=== PATIENT | female | born 1935 | race Caucasian/White ===

== ENCOUNTER → 2018-01-17 | Outpatient (REF) | payer MEDICARE ==
[2018-01-17 19:01] LABS: FREE T4 0.83 NG/DL (0.76-1.46)
== END ==
LOC: M LAB REF 17:54
DX: E03.9 Hypothyroidism, unspecified (principal)
CPT/HCPCS: 84443

== ENCOUNTER → 2018-04-12 | Outpatient (CLI) | payer MEDICARE | LOC: M WUC 12:37 | DX: J20.9 Acute bronchitis, unspecified (principal); R06.02 Shortness of breath ==

== ENCOUNTER 2018-04-15 11:37 | Inpatient (IN) | payer MEDICARE ==
[2018-04-15 12:58] LABS: BASO # 0.1 10^3/uL (0.0-0.2); BASO % 0.6 % (0.0-1.0); EOS # 0.2 10^3/uL (0.0-0.50); EOS % 2.2 % (0.0-3.0); HEMATOCRIT 38.4 % (36.0-47.0); HEMOGLOBIN 13.3 g/dl (12.0-15.5); IMMATURE GRANULOCYTE % 0.3 % (0-3.0); LYMPH # 1.2 10^3/uL (1.5-4.5); LYMPH % 13.9 % (24.0-44.0); MEAN CORPUSCULAR HEMOGLOBIN 33.8 pg (27.0-33.0); MEAN CORPUSCULAR HGB CONC 34.6 g/dl (32.0-36.5); MEAN CORPUSCULAR VOLUME 97.5 fl (80.0-96.0); MONO # 0.4 10^3/uL (0.0-0.8); MONO % 4.1 % (0.0-5.0); NEUTROPHILS # 6.9 10^3/uL (1.8-7.7); NEUTROPHILS % 78.9 % (36.0-66.0); PLATELET COUNT, AUTOMATED 268 10^3/uL (150-450); RED BLOOD COUNT 3.94 10^6/uL (4.00-5.40); RED CELL DISTRIBUTION WIDTH 12.3 % (11.5-14.5); WHITE BLOOD COUNT 8.7 10^3/uL (4.0-10.0)
[2018-04-15 13:23] LABS: ALBUMIN 3.5 GM/DL (3.2-5.2); ALBUMIN/GLOBULIN RATIO 0.92 (1.00-1.93); ALKALINE PHOSPHATASE 80 U/L (45-117); ANION GAP 8 MEQ/L (8-16); AST/SGOT 14 U/L (7-37); BILIRUBIN,DIRECT 0.2 MG/DL (0.0-0.2); BILIRUBIN,TOTAL 0.6 MG/DL (0.2-1.0); BLOOD UREA NITROGEN 11 MG/DL (7-18); CALCIUM LEVEL 8.8 MG/DL (8.8-10.2); CARBON DIOXIDE LEVEL 22 MEQ/L (21-32); CHLORIDE LEVEL 107 MEQ/L (98-107); CPK CREATINE PHOSPHOKINASE 74 U/L (26-192); CREATININE FOR GFR 1.47 MG/DL (0.55-1.30); GLOMERULAR FILTRATION RATE 36.3 (>32); GLUCOSE, FASTING 113 MG/DL (70-100); POTASSIUM SERUM 3.5 MEQ/L (3.5-5.1); SODIUM LEVEL 137 MEQ/L (136-145); TOTAL PROTEIN 7.3 GM/DL (6.4-8.2); TROPONIN I < 0.02 NG/ML (< 0.10)
[2018-04-15 13:29] LABS: ALT/SGPT 23 U/L (12-78); CK-MB VALUE MASS < 1.0 NG/ML (<3.6); MB/CK RELATIVE INDEX 1.35 (< OR =4); NT-PRO BNP 156 PG/ML (<450)
[2018-04-15 17:09] LABS: ABG BASE EXCESS -3.2 (-2.0-2.0); ABG HCO3 19.5 MEQ/L (22.0-26.0); ABG O2 SATURATION 97.1 % (95.0-99.0); ABG PARTIAL PRESSURE CO2 28.7 mmHg (35.0-45.0); ABG PARTIAL PRESSURE O2 86.7 mmHg (75.0-100.0); ABG STANDARD HCO3 21.8 MEQ/L (22.0-26.0); ABG TOTAL CO2 20.4 MEQ/L (23.0-31.0)
[2018-04-15] MEDS ORDERED: BISACODYL 10 MG SUPP PR (18:30)
[2018-04-15] MEDS ORDERED: ALBUTEROL 90 MCG/ACT 8GM HFA INHALER INH (18:30)
[2018-04-15] MEDS: LevoFLOXacin IV 250 MG in APPROPRIATE DILUENT 1 EA IV (19:32)
[2018-04-15] MEDS: predniSONE 10 MG TAB PO ×2 (19:32→19:35)
[2018-04-15] MEDS: guaiFENesin ER 600 MG TAB PO (20:15)
[2018-04-15] MEDS: ALPRAZolam 0.25 MG TAB PO (20:15)
[2018-04-15] MEDS: IPRATROPIUM 0.5MG/ALBUTEROL 2.5MG INH SOL UD 3ML (DUONEB)(J7620) NEB (21:12)
[2018-04-16] MEDS: IPRATROPIUM 0.5MG/ALBUTEROL 2.5MG INH SOL UD 3ML (DUONEB)(J7620) NEB ×4 (01:35→21:22)
[2018-04-16 06:01] LABS: BASO % 0.1 % (0.0-1.0); HEMATOCRIT 37.1 % (36.0-47.0); HEMOGLOBIN 12.8 g/dl (12.0-15.5); IMMATURE GRANULOCYTE % 0.5 % (0-3.0); LYMPH # 1.1 10^3/uL (1.5-4.5); LYMPH % 11.4 % (24.0-44.0); MEAN CORPUSCULAR HEMOGLOBIN 33.4 pg (27.0-33.0); MEAN CORPUSCULAR HGB CONC 34.5 g/dl (32.0-36.5); MEAN CORPUSCULAR VOLUME 96.9 fl (80.0-96.0); MONO # 0.2 10^3/uL (0.0-0.8); NEUTROPHILS # 8.5 10^3/uL (1.8-7.7); PLATELET COUNT, AUTOMATED 320 10^3/uL (150-450); RED BLOOD COUNT 3.83 10^6/uL (4.00-5.40); RED CELL DISTRIBUTION WIDTH 12.2 % (11.5-14.5); WHITE BLOOD COUNT 9.8 10^3/uL (4.0-10.0)
[2018-04-16 06:25] LABS: ESTIMATED AVERAGE GLUCOSE 114 MG/DL (60-110); HEMOGLOBIN A1c 5.6 %
[2018-04-16 06:28] LABS: ANION GAP 9 MEQ/L (8-16); BLOOD UREA NITROGEN 17 MG/DL (7-18); CALCIUM LEVEL 9.1 MG/DL (8.8-10.2); CARBON DIOXIDE LEVEL 23 MEQ/L (21-32); CHLORIDE LEVEL 102 MEQ/L (98-107); GLOMERULAR FILTRATION RATE 38.4 (>32); GLUCOSE, FASTING 150 MG/DL (70-100); MAGNESIUM LEVEL 2.2 MG/DL (1.8-2.4); POTASSIUM SERUM 4.1 MEQ/L (3.5-5.1); SODIUM LEVEL 134 MEQ/L (136-145)
[2018-04-16] MEDS: CYANOCOBALAMIN 500 MCG TAB PO (08:28)
[2018-04-16] MEDS: SPIRONOLACTONE 25 MG TAB PO (08:29)
[2018-04-16] MEDS: guaiFENesin ER 600 MG TAB PO ×2 (08:29→21:29)
[2018-04-16] MEDS: ENOXAPARIN 30 MG/0.3 ML SYR (J1650) SC (08:29)
[2018-04-16] MEDS: LOSARTAN 50 MG TAB PO (08:29)
[2018-04-16 15:10] LABS: APPEARANCE, URINE CLEAR (CLEAR); BACTERIA, URINE AUTO NEGATIVE (NEGATIVE); BILIRUBIN, URINE AUTO NEGATIVE (NEGATIVE); BLOOD, URINE BLOOD NEGATIVE (NEGATIVE); COLOR, URINE STRAW (YELLOW); GLUCOSE, URINE (UA) AUTO NEGATIVE (NEGATIVE); KETONE, URINE AUTO NEGATIVE (NEGATIVE); LEUKOCYTE ESTERASE, URINE AUTO NEGATIVE (NEGATIVE); NITRITE, URINE AUTO NEGATIVE (NEGATIVE); PROTEIN, URINE AUTO NEGATIVE (NEGATIVE); RBC, URINE AUTO 1 /HPF (0-3); SPECIFIC GRAVITY URINE AUTO 1.005 (1.002-1.035); SQUAMOUS EPITHELIAL CELL UR AU 0 /HPF (0-6); UROBILINOGEN, URINE AUTO 0.2 mg/dL (0.0-2.0); WBC, URINE AUTO 0 /HPF (0-3)
[2018-04-16] MEDS: predniSONE 20 MG TAB PO (18:15)
[2018-04-16] MEDS: LevoFLOXacin IV 250 MG in APPROPRIATE DILUENT 1 EA IV (18:16)
[2018-04-16] MEDS: ALPRAZolam 0.25 MG TAB PO (21:29)
[2018-04-16] MEDS: ACETAMINOPHEN TAB 650MG DOSE (2X325MG) PO (21:30)
[2018-04-17] MEDS: IPRATROPIUM 0.5MG/ALBUTEROL 2.5MG INH SOL UD 3ML (DUONEB)(J7620) NEB (08:47)
[2018-04-17] MEDS: SPIRONOLACTONE 25 MG TAB PO (09:52)
[2018-04-17] MEDS: CYANOCOBALAMIN 500 MCG TAB PO (09:53)
[2018-04-17] MEDS: LOSARTAN 50 MG TAB PO (09:54)
[2018-04-17] MEDS: ENOXAPARIN 30 MG/0.3 ML SYR (J1650) SC (09:55)
== END 2018-04-17 11:50 | disposition home or self-care (01) | DRG 195 ==
LOC: M ED 11:37 → M ED INP 19:18 → M MSPAV 19:59
DX: J18.9 Pneumonia, unspecified organism (principal); I12.9 Hypertensive chronic kidney disease with stage 1 through stage 4 chronic kidney disease, or unspecified chronic kidney disease; F32.9 Major depressive disorder, single episode, unspecified; K21.9 Gastro-esophageal reflux disease without esophagitis; I70.1 Atherosclerosis of renal artery; N18.3 Chronic kidney disease, stage 3 (moderate); Z79.899 Other long term (current) drug therapy; Z88.8 Allergy status to other drugs, medicaments and biological substances

== ENCOUNTER 2019-02-10 09:26 | Emergency (ER) | payer MEDICARE ==
[~2019-02-10] VITALS: Ht 162.6 cm; Wt 78.6 kg
[~2019-02-10 09:26] MED LIST: ACET500C OR; ALPR0.25 PO; ALPR1TAB6 PO; AMBI5TAB OR; AMLO10TA OR; AMLO10TA PO; Apresoline PO; COLA100C2 OR; DOXY-350 PO; HYDR25TA6 OR; ISOS30BRAN OR; LEVO250T12 PO; LOSA100T8 PO; MELA1CAP PO; MUCI600T31 PO; MULTCAP PO; PEG1POW PO; PROT1TAB2 PO; SENN15TA2 OR; SERT50TA2 OR; SPIR-10 PO; VENTAER INH; VICO5TAB OR; VITA10002 PO; ZOLO50TA OR; dulcolax PR
[2019-02-10] MEDS ORDERED: IRBE300T10 PO (09:39)
[2019-02-10 10:24] LABS: BASO % 0.6 % (0.0-1.0); EOS # 0.2 10^3/uL (0.0-0.50); EOS % 3.1 % (0.0-3.0); HEMATOCRIT 42.5 % (36.0-47.0); HEMOGLOBIN 14.3 g/dl (12.0-15.5); LYMPH # 1.9 10^3/uL (1.5-4.5); LYMPH % 26.8 % (24.0-44.0); MEAN CORPUSCULAR HGB CONC 33.6 g/dl (32.0-36.5); MONO # 0.6 10^3/uL (0.0-0.8); MONO % 7.8 % (0.0-5.0); NEUTROPHILS # 4.4 10^3/uL (1.8-7.7); NEUTROPHILS % 61.3 % (36.0-66.0); PLATELET COUNT, AUTOMATED 266 10^3/uL (150-450); RED BLOOD COUNT 4.21 10^6/uL (4.00-5.40); WHITE BLOOD COUNT 7.2 10^3/uL (4.0-10.0)
[2019-02-10 10:30] LABS: APPEARANCE, URINE CLEAR (CLEAR); BACTERIA, URINE AUTO NEGATIVE (NEGATIVE); BILIRUBIN, URINE AUTO NEGATIVE (NEGATIVE); BLOOD, URINE BLOOD NEGATIVE (NEGATIVE); COLOR, URINE YELLOW (YELLOW); GLUCOSE, URINE (UA) AUTO NEGATIVE (NEGATIVE); KETONE, URINE AUTO NEGATIVE (NEGATIVE); LEUKOCYTE ESTERASE, URINE AUTO NEGATIVE (NEGATIVE); NITRITE, URINE AUTO NEGATIVE (NEGATIVE); PROTEIN, URINE AUTO NEGATIVE (NEGATIVE); RBC, URINE AUTO 2 /HPF (0-3); SPECIFIC GRAVITY URINE AUTO 1.005 (1.002-1.035); SQUAMOUS EPITHELIAL CELL UR AU 0 /HPF (0-6); UROBILINOGEN, URINE AUTO 0.2 mg/dL (0.0-2.0); WBC, URINE AUTO 1 /HPF (0-3)
[2019-02-10] MEDS ORDERED: CYCLOBENZAPRINE 5MG TABLET PO ONE (10:30)
[2019-02-10 10:51] LABS: CALCIUM LEVEL 8.9 MG/DL (8.8-10.2); CREATININE FOR GFR 1.58 MG/DL (0.55-1.30); GLOMERULAR FILTRATION RATE 33.3 (>32); MAGNESIUM LEVEL 2.4 MG/DL (1.8-2.4); POTASSIUM SERUM 4.4 MEQ/L (3.5-5.1)
[2019-02-10] MEDS ORDERED: ISOVUE-370 76% 100ML VIAL (Q9967) As Ordered ONE (11:03)
--- NOTE | 2019-02-10 11:40 | REP ---
CT Lumbar Spine without contrast HISTORY: Back pain COMPARISON: None A diffuse disc bulge is present at the L1-2 level. There is minimal compression of the thecal sac. The L1 nerves exit the neural foramina without compression. A diffuse disc bulge is present at the L2-3 level. There is minimal compression of the thecal sac. There is hypertrophy of the posterior articulating facets. The L2 nerves exit the neural foramina without compression. A diffuse disc bulge is present at the L3-4 level. There is minimal compression of the thecal sac. There is hypertrophy of the posterior articulating facets. The L3 nerves exit the neural foramina without compression. A diffuse disc bulge is present at the L4-5 level. There is minimal compression of the thecal sac. There is hypertrophy of the posterior articulating facets. The L4 nerves exit the neural foramina without compression. A diffuse disc bulge is present at the L5-L1 level. There is minimal compression of the thecal sac. There is hypertrophy of the posterior articulating facets. There is compression of the L5 nerves in the neural foramina. The lumbar intervertebral discs are decreased in height. Vacuum phenomenon is present at the L1-2 and L5-L1 levels. These findings are consistent with disc degeneration. A 2.2 cm cyst is present in the left kidney. IMPRESSION: Diffuse disc bulges at the L1-2 through L5-L1 levels with minimal thecal sac compression. There is compression of the L5 nerves in the neural foramina. Electronically Signed by Curt Philippe MD 02/10/2019 11:32 A
[2019-02-10] MEDS ORDERED: NS 500 ML IV ONE (11:45)
--- NOTE | 2019-02-10 12:11 | REP ---
CT ANGIOGRAM ABDOMEN AND PELVIS: TECHNIQUE: Axial contrast enhanced images from the lung bases to the pubic symphysis using 100 mL Isovue 370 intravenous contrast material with multiplanar reformations. Visualized lung bases demonstrate no infiltrate. The liver, spleen and pancreas appear normal. There is bilateral adrenal gland thickening. No abnormality is seen in the right kidney. There is significant left renal atrophy with multiple cysts. The largest cyst measures 2.3 cm in diameter. There is no abdominal aortic aneurysm. There is mild scattered atherosclerotic calcification. Bilateral renal artery stents are present. Mesenteric arteries are patent. No adenopathy is seen. There is no free air or free fluid. No bowel wall thickening is seen. There is extensive sigmoid diverticulosis extending up the left colon. I do not see evidence of acute diverticulitis. There is no evidence of appendicitis. No pelvic mass is seen. Urinary bladder is mildly distended and grossly unremarkable. Lipoma is partially visualized in the proximal right thigh anteriorly with the visualized portion having a maximum diameter 7.9 cm. The patient has had a cholecystectomy. Common bile duct measures 10 mm in maximum diameter with no definite internal densities. IMPRESSION: No acute abnormalities detected. No evidence of abdominal aortic aneurysm. No free air or free fluid and no evidence of bowel inflammation. There is left colonic and sigmoid diverticulosis without evidence of acute diverticulitis. Lipoma is seen in the proximal right thigh. The patient has had a prior cholecystectomy. There is expected prominence of the common bile duct at 10 mm in diameter. There is significant left renal atrophy with multiple cysts. Electronically Signed by Rito Morley MD 02/10/2019 07:28 P
[2019-02-10] MEDS ORDERED: CYCL5TAB PO (12:12)
[2019-02-10 12:18] VITALS: BP 133/68
--- NOTE | 2019-02-13 12:43 | ED PDOC ---
Post-Departure Follow-Up dr sewell faxed formal report of cta angio abd/p for fu Byron Dee MD Feb 13, 2019 12:43
--- NOTE | 2019-02-13 12:50 | ED PDOC ---
Post-Departure Follow-Up dr sewell faxed formal report of ct ls spine for fu Byron Dee MD Feb 13, 2019 12:50
== END 2019-02-10 12:49 | disposition home or self-care (01) ==
LOC: M ED 09:26
DX: M51.16 Intervertebral disc disorders with radiculopathy, lumbar region (principal); I12.9 Hypertensive chronic kidney disease with stage 1 through stage 4 chronic kidney disease, or unspecified chronic kidney disease; N18.9 Chronic kidney disease, unspecified; F41.9 Anxiety disorder, unspecified; Z88.8 Allergy status to other drugs, medicaments and biological substances; Z79.899 Other long term (current) drug therapy
CPT/HCPCS: 36415; 72131; 74174; 80048; 81001; 83735; 85025; 99284; Q9967

== ENCOUNTER → 2019-02-24 | Outpatient (CLI) | payer MEDICARE ==
[~2019-02-24] MED LIST changes: +CYCL5TAB PO; +IRBE300T10 PO
== END ==
LOC: M PLARAD 14:28
PROVIDERS: ATTEND Emergency Medicine
DX: M54.16 Radiculopathy, lumbar region (principal)

== ENCOUNTER → 2019-04-26 | Outpatient (CLI) | payer MEDICARE ==
[~2019-04-26] MED LIST changes: +CYAN100049 PO; -VITA10002 PO
--- NOTE | 2019-05-02 13:27 | DEXA ---
AP SPINE L1 - L4 1.141 -0.4 1.4 LT FEMUR TOTAL 0.953 -0.4 1.7 LT NECK 0.845 -1.4 0.9 RT FEMUR TOTAL 0.912 -0.8 1.4 RT NECK 0.806 -1.7 0.6 TOTAL BODY TOTAL OTHER COMMENTS: Normal bone densitometry of the spine. There is low bone density of the hips. The density of the spine has increased 10.9% since the initial exam on 11/23/2006. The spine density has increased 8.6% since the most recent exam on 01/19/2012. The density of the left neck has decreased 5.7% since the initial exam on 11/23/2006. The density of the left neck has decreased 6.2% since the most recent exam on 01/19/2012. FOLLOW-UP: Recommendation for the next bone density exam: 2 years. FARA
== END ==
LOC: M WHC 13:33
PROVIDERS: ATTEND Nurse Practitioner Family
DX: Z13.820 Encounter for screening for osteoporosis (principal); M81.0 Age-related osteoporosis without current pathological fracture

== ENCOUNTER → 2020-05-17 | Outpatient (REF) | payer MEDICARE ==
[~2020-05-17] MED LIST changes: -IRBE300T10 PO; +IRBE300T7 PO
[2020-05-17 18:25] LABS: BASO % 0.6 % (0.0-1.0); EOS # 0.2 10^3/uL (0.0-0.5); EOS % 2.7 % (0.0-3.0); HEMATOCRIT 38.7 % (36.0-47.0); HEMOGLOBIN 13.9 g/dl (12.0-15.5); LYMPH # 1.5 10^3/uL (1.5-5.0); LYMPH % 24.4 % (24.0-44.0); MEAN CORPUSCULAR HEMOGLOBIN 38.4 pg (27.0-33.0); MEAN CORPUSCULAR HGB CONC 35.9 g/dl (32.0-36.5); MEAN CORPUSCULAR VOLUME 106.9 fl (80.0-96.0); MONO # 0.4 10^3/uL (0.0-0.8); MONO % 6.9 % (0.0-5.0); NEUTROPHILS % 65.2 % (36.0-66.0); PLATELET COUNT, AUTOMATED 218 10^3/uL (150-450); RED BLOOD COUNT 3.62 10^6/uL (4.00-5.40); WHITE BLOOD COUNT 6.2 10^3/uL (4.0-10.0)
[2020-05-17 18:26] LABS: ALBUMIN 3.8 GM/DL (3.2-5.2); BILIRUBIN,TOTAL 0.6 MG/DL (0.2-1.0); CALCIUM LEVEL 8.8 MG/DL (8.8-10.2); CHOLESTEROL RISK RATIO 4.447 (<5); CREATININE FOR GFR 1.53 MG/DL (0.55-1.30); GLOMERULAR FILTRATION RATE 34.4 (>32); POTASSIUM SERUM 4.6 MEQ/L (3.5-5.1); TOTAL PROTEIN 6.9 GM/DL (6.4-8.2)
== END ==
LOC: M LAB REF 16:30
PROVIDERS: ATTEND Nurse Practitioner Family
DX: Z00.01 Encounter for general adult medical examination with abnormal findings (principal); Z13.9 Encounter for screening, unspecified; N18.1 Chronic kidney disease, stage 1; F06.4 Anxiety disorder due to known physiological condition

== ENCOUNTER → 2020-11-11 | Outpatient (REF) | payer MEDICARE ==
[~2020-11-11] MED LIST changes: -PEG1POW PO; +POLY17PO18 PO
[2020-11-11 16:46] LABS: BASO % 0.4 % (0.0-1.0); EOS # 0.3 10^3/uL (0.0-0.5); EOS % 4.1 % (0.0-3.0); HEMATOCRIT 40.6 % (36.0-47.0); HEMOGLOBIN 13.8 g/dl (12.0-15.5); LYMPH # 2.2 10^3/uL (1.5-5.0); LYMPH % 29.8 % (24.0-44.0); MEAN CORPUSCULAR HEMOGLOBIN 34.8 pg (27.0-33.0); MEAN CORPUSCULAR VOLUME 102.3 fl (80.0-96.0); MONO # 0.6 10^3/uL (0.0-0.8); MONO % 8.6 % (2.0-8.0); NEUTROPHILS # 4.2 10^3/uL (1.5-8.5); PLATELET COUNT, AUTOMATED 212 10^3/uL (150-450); RED BLOOD COUNT 3.97 10^6/uL (4.00-5.40); WHITE BLOOD COUNT 7.3 10^3/uL (4.0-10.0)
[2020-11-11 17:26] LABS: ALBUMIN 3.6 GM/DL (3.2-5.2); BILIRUBIN,TOTAL 0.6 MG/DL (0.2-1.0); CALCIUM LEVEL 9.4 MG/DL (8.8-10.2); CHOLESTEROL RISK RATIO 5.062 (<5); CREATININE FOR GFR 1.55 MG/DL (0.55-1.30); GLOMERULAR FILTRATION RATE 33.9 (>32); POTASSIUM SERUM 4.5 MEQ/L (3.5-5.1); TOTAL PROTEIN 6.6 GM/DL (6.4-8.2)
[2020-11-11 17:27] LABS: TOTAL 25(OH) VITAMIN D 50.4 NG/ML (30.0-100.0)
== END ==
LOC: M LAB REF 16:22
PROVIDERS: ATTEND Nurse Practitioner Family
DX: I10 Essential (primary) hypertension (principal); E66.3 Overweight

== ENCOUNTER 2020-12-05 18:27 | Emergency (ER) | payer MEDICARE ==
[~2020-12-05] VITALS: Ht 162.6 cm; Wt 79.5 kg
[2020-12-05] MEDS ORDERED: TIZA2TA (18:45)
[2020-12-05] MEDS ORDERED: VITA200010 PO (18:45)
[2020-12-05 19:44] LABS: BASO % 0.5 % (0.0-1.0); EOS # 0.1 10^3/uL (0.0-0.5); EOS % 1.2 % (0.0-3.0); HEMATOCRIT 42.6 % (36.0-47.0); HEMOGLOBIN 14.3 g/dl (12.0-15.5); LYMPH # 1.9 10^3/uL (1.5-5.0); LYMPH % 22.6 % (24.0-44.0); MEAN CORPUSCULAR HGB CONC 33.6 g/dl (32.0-36.5); MEAN CORPUSCULAR VOLUME 101.2 fl (80.0-96.0); MONO # 0.7 10^3/uL (0.0-0.8); MONO % 8.3 % (2.0-8.0); NEUTROPHILS # 5.7 10^3/uL (1.5-8.5); PLATELET COUNT, AUTOMATED 254 10^3/uL (150-450); RED BLOOD COUNT 4.21 10^6/uL (4.00-5.40); WHITE BLOOD COUNT 8.5 10^3/uL (4.0-10.0)
--- NOTE | 2020-12-05 19:45 | REP ---
INDICATION: dizziness. COMPARISON: PA and lateral chest dated 04/15/2018. TECHNIQUE: Upright PA and lateral chest. FINDINGS: The lung castro are clear. Cardiac size is normal. The [place], mediastinum and skeletal structures are unremarkable. IMPRESSION: Essentially negative PA and lateral chest There is no interval change. <Electronically signed by Rito Okeefe > 12/05/20 1946
[2020-12-05 20:12] LABS: ALBUMIN 3.9 GM/DL (3.2-5.2); ALT/SGPT 24 U/L (12-78); BILIRUBIN,DIRECT 0.2 MG/DL (0.0-0.2); BILIRUBIN,TOTAL 0.6 MG/DL (0.2-1.0); BLOOD UREA NITROGEN 23 MG/DL (7-18); CALCIUM LEVEL 9.7 MG/DL (8.8-10.2); CARBON DIOXIDE LEVEL 24 MEQ/L (21-32); CHLORIDE LEVEL 109 MEQ/L (98-107); CK-MB VALUE MASS 1.3 NG/ML (<3.6); CPK CREATINE PHOSPHOKINASE 58 U/L (26-192); CREATININE FOR GFR 1.69 MG/DL (0.55-1.30); GLOMERULAR FILTRATION RATE 30.7 (>32); GLUCOSE, FASTING 103 MG/DL (70-100); LIPASE 71 U/L (73-393); MB/CK RELATIVE INDEX 2.24 (< OR =4); POTASSIUM SERUM 4.4 MEQ/L (3.5-5.1); SODIUM LEVEL 141 MEQ/L (136-145); TOTAL PROTEIN 7.1 GM/DL (6.4-8.2); TROPONIN I < 0.02 NG/ML (< 0.10)
[2020-12-05] MEDS: GASTROGRAFIN SOLUTION 30ML PO SCH ×2 (21:06→21:38)
--- NOTE | 2020-12-05 23:22 | REPVR ---
PROCEDURE INFORMATION: Exam: CT Abdomen and Pelvis without Contrast Exam date and time: 12/05/20 (10:20pm) Age: 85 years old Clinical indication: Left-sided abdominal pain TECHNIQUE: Imaging protocol: Computed tomography of the abdomen and pelvis without contrast. Radiation optimization: All CT scans at this facility use at least one of these dose optimization techniques: automated exposure control; mA and/or kV adjustment per patient size (includes targeted exams where dose is matched to clinical indication); or iterative reconstruction. Other contrast: Oral, gastrographin, 600 ml COMPARISON: CTA ABDOMEN PELVIS of 02/10/19 FINDINGS: Liver: Normal. No solid mass. Gallbladder and bile ducts: S/P cholecystectomy. Mildly prominent proximal CBD. Pancreas: Normal. No ductal dilatation. Spleen: Normal. No splenomegaly. Adrenal glands: Normal. No mass. Kidneys and ureters: No hydronephrosis. Moderate left renal atrophy again seen. Cyst (2.2 cm size) anteriorly at the left upper renal pole (stable). Stomach and bowel: No bowel obstruction. Colonic diverticulosis changes, most extensively seen in the distal left colon and sigmoid (similar appearance in January 2019). No acute colonic inflammation. Appendix: A short, normal appendix is likely be visualized. Intraperitoneal space: Unremarkable. No free air. No significant fluid collection. Vasculature: Extensive atherosclerotic calcifications of the abdominal aorta and iliac arteries. Bilateral renal artery stents again seen. No abdominal aortic aneurysm. Lymph nodes: Unremarkable. No enlarged lymph nodes. Urinary bladder: Unremarkable as visualized. Reproductive: Unremarkable as visualized. The uterus tilts to the right of midline (unchanged). Bones/joints: No acute fracture. Multilevel degenerative thoracolumbar spine changes. Soft tissues: Large lipoma again seen anteriorly in the upper right thigh (unchanged appearance). IMPRESSION: No acute findings. S/P cholecystectomy. No hydronephrosis. Moderate left renal atrophy. Electronically signed by: Alexandria Garnica On 12/05/2020 23:22:38 PM
[2020-12-05 23:45] VITALS: BP 160/67
--- NOTE | 2020-12-06 08:45 | ECGEPIP ---
[facility] - ED Test Date: 2020-12-05 Pat Name: CAMELIA SIDHU Department: Room: - Gender: Female Inside Sales Person: ANDERS : [id number] Requested By: PAYTON Aj Order Number: [id number] Reading MD: Nik Christy Measurements Intervals [place] Rate: 66 P: 41 MN: 198 QRS: -11 QRSD: 80 T: 32 QT: 402 QTc: 421 Interpretive Statements Normal sinus rhythm Anteroseptal infarct , age undetermined POSSIBLE PRIOR INFERIOR INFARCT NSTTW ABNORMALITY(S) SIMILAR TO 04/15/18 Electronically Signed on 12-06-2020 8:45:10 EDT by Nik Christy
== END 2020-12-06 00:09 | disposition home or self-care (01) ==
LOC: M ED 18:27
DX: R68.83 Chills (without fever) (principal); I10 Essential (primary) hypertension; F33.9 Major depressive disorder, recurrent, unspecified; Z88.8 Allergy status to other drugs, medicaments and biological substances; Z79.899 Other long term (current) drug therapy
CPT/HCPCS: 36415; 71046; 74176; 80048; 80076; 81001; 82550; 82553; 83690; 84484; 85025; 87086; 93005; 93041; 99285; Q9963

== ENCOUNTER → 2021-04-28 | Outpatient (REF) | payer MEDICARE ==
[~2021-04-28] MED LIST changes: +TIZA2TA; +VITA200010 PO
== END ==
LOC: M LAB REF 17:25
PROVIDERS: ATTEND Internal Medicine Nephrology
DX: E83.42 Hypomagnesemia (principal)

== ENCOUNTER → 2022-01-30 | Outpatient (CLI) | payer MEDICARE ==
[~2022-01-30] MED LIST changes: -LEVO250T12 PO; +LEVO250T3 PO
== END ==
LOC: M WUC 13:57
PROVIDERS: ATTEND Physician Assistant
DX: R06.09 Other forms of dyspnea (principal)

== ENCOUNTER → 2022-11-04 | Outpatient (REF) | payer MEDICARE ==
[~2022-11-04] MED LIST changes: -DOXY-350 PO; +DOXY-444 PO; +LEVO1TAB38 PO; -LEVO250T3 PO
[2022-11-04 18:25] LABS: POTASSIUM SERUM 4.3 MMOL/L (3.5-5.1)
== END ==
LOC: M LAB REF 17:11
PROVIDERS: ATTEND Internal Medicine Nephrology
DX: N25.81 Secondary hyperparathyroidism of renal origin (principal)

== ENCOUNTER → 2023-01-20 | Outpatient (REF) | payer MEDICARE ==
[2023-01-23 02:10] LABS: CREATININE, URINE 38.1 mg/dL (20.0-300.0)
== END ==
LOC: M LAB REF 16:59
PROVIDERS: ATTEND Physician Assistant
DX: Z79.899 Other long term (current) drug therapy (principal)

== ENCOUNTER → 2023-02-09 | Outpatient (CLI) | payer MEDICARE | LOC: M WHC 12:39 | PROVIDERS: ATTEND Physician Assistant | DX: Z13.820 Encounter for screening for osteoporosis (principal); Z78.0 Asymptomatic menopausal state ==

== ENCOUNTER → 2023-04-06 | Outpatient (CLI) | payer MEDICARE | LOC: M WUC 15:57 | PROVIDERS: ATTEND Physician Assistant | DX: J06.9 Acute upper respiratory infection, unspecified (principal) ==

== ENCOUNTER → 2023-04-21 | Outpatient (CLI) | payer MEDICARE | LOC: M CARPUL 13:08 | PROVIDERS: ATTEND Physician Assistant | DX: R06.2 Wheezing (principal) ==

== ENCOUNTER → 2023-12-05 | Outpatient (CLI) | payer MEDICARE, MEDICAID ==
[~2023-12-05] MED LIST changes: +IRBE300T25 PO; -IRBE300T7 PO
[2023-12-05 14:01] LABS: CHOLESTEROL RISK RATIO 4.8 (<5); HDL CHOLESTEROL 28.1 MG/DL (>40); LDL CHOLESTEROL 40.1 MG/DL (<100); NON-HDL-C 106.9 MG/DL
== END ==
LOC: M LAB 13:21
PROVIDERS: ATTEND Physician Assistant
DX: I10 Essential (primary) hypertension (principal)

== ENCOUNTER → 2024-03-06 | Outpatient (CLI) | payer MEDICARE, MEDICAID ==
[~2024-03-06] MED LIST changes: +DOXY-440 PO; -DOXY-444 PO
== END ==
LOC: M WUC 09:05
PROVIDERS: ATTEND Nurse Practitioner Family
DX: M25.561 Pain in right knee (principal)

== ENCOUNTER → 2024-04-13 | Outpatient (REF) | payer MEDICARE, MEDICAID | LOC: M LAB REF 16:14 | PROVIDERS: ATTEND Physician Assistant | DX: Z79.899 Other long term (current) drug therapy (principal) ==

== ENCOUNTER → 2024-10-03 | Outpatient (CLI) | payer MEDICARE, MEDICAID ==
[~2024-10-03] MED LIST changes: -CYCL5TAB PO; +CYCL5TAB4 PO
[2024-10-03 14:35] LABS: HEMATOCRIT 42.4 % (36.0-47.0); HEMOGLOBIN 14.5 g/dl (12.0-15.5); MEAN CORPUSCULAR HEMOGLOBIN 34.9 pg (27.0-33.0); MEAN CORPUSCULAR HGB CONC 34.2 g/dl (32.0-36.5); MEAN CORPUSCULAR VOLUME 101.9 fl (80.0-96.0); PLATELET COUNT, AUTOMATED 227 10^3/uL (150-450); RED BLOOD COUNT 4.16 10^6/uL (4.00-5.40); WHITE BLOOD COUNT 7.6 10^3/uL (4.0-10.0)
[2024-10-03 15:02] LABS: CALCIUM LEVEL 9.8 MG/DL (8.3-10.6); CREATININE FOR GFR 1.4 MG/DL (0.55-1.30); GLOMERULAR FILTRATION RATE 37.8 (>32); POTASSIUM SERUM 4.4 MMOL/L (3.5-5.1)
== END ==
LOC: M RAD 13:16
PROVIDERS: ATTEND Physician Assistant
DX: R06.00 Dyspnea, unspecified (principal); I44.0 Atrioventricular block, first degree

== ENCOUNTER → 2025-07-02 | Outpatient (CLI) | payer MEDICARE, MEDICAID ==
[~2025-07-02] MED LIST changes: +ALPR-516 PO; -ALPR1TAB6 PO; +AMLO-751 PO; -AMLO10TA PO
== END ==
LOC: M WUC 13:39
PROVIDERS: ATTEND Student in an Organized Health Care Education/Training Program
DX: J06.9 Acute upper respiratory infection, unspecified (principal)

== ENCOUNTER 2025-07-12 13:20 | Emergency (ER) | payer MEDICARE, MEDICAID ==
[~2025-07-12] VITALS: Ht 167.6 cm; Wt 76.8 kg
[2025-07-12 20:18] LABS: PLATELET COUNT, AUTOMATED 240 10^3/uL (150-450)
[2025-07-12 20:27] LABS: KETONE, URINE AUTO RFX TRACE mg/dL (NEGATIVE); LEUKOCYTE ESTERASE UR AUTO RFX NEGATIVE (NEGATIVE); MUCUS, URINE RFX SMALL (NEGATIVE); NITRITE, URINE AUTO RFX NEGATIVE (NEGATIVE); RBC, URINE AUTO RFX 71 /HPF (0-3); SQUAM EPITHELIAL CELL UR AURFX 1 /HPF (0-6); TRANSITIONAL EPITHELIAL AU RFX 1 /HPF; WBC, URINE AUTO RFX 3 /HPF (0-3)
[2025-07-12 20:41] LABS: INR 1.09
[2025-07-12 20:42] LABS: ATYPICAL LYMPH 9 % (0-5); BASOPHILS 1 % (0-1); LYMPHOCYTES 9 % (16-44); NEUTROPHILS 81 % (28-66); PLATELET ESTIMATE NORMAL (NORMAL)
[2025-07-12 21:15] LABS: CALCIUM LEVEL 9.3 MG/DL (8.3-10.6); CARBON DIOXIDE LEVEL 26.0 MMOL/L (20-31); CHLORIDE LEVEL 105.0 MMOL/L (98-107); CREATININE FOR GFR 1.33 MG/DL (0.55-1.30); GLOMERULAR FILTRATION RATE 38.2 (>32); MAGNESIUM LEVEL 2.1 MG/DL (1.8-2.4); POTASSIUM SERUM 4.1 MMOL/L (3.5-5.1); SODIUM LEVEL 141.0 MMOL/L (136-145)
[2025-07-12 22:20] VITALS: TEMP 97.2
[2025-07-13] MEDS: IPRATROPIUM 0.5 MG/ALBUTEROL 2.5 MG INH SOL UD 3 ML NEB ONE ×2 (00:50→04:40)
[2025-07-13 01:37] LABS: CK-MB VALUE MASS 2.5 NG/ML (<3.6)
[2025-07-13 01:40] LABS: CPK CREATINE PHOSPHOKINASE 64.0 U/L (34-145); MB/CK RELATIVE INDEX 3.9 (< OR =4)
[2025-07-13] MEDS ORDERED: IPRA0.00 NEB (04:09)
[2025-07-13 06:15] VITALS: O2SAT 91
[2025-07-13 06:40] VITALS: BP 159/72
== END 2025-07-13 06:44 | disposition home or self-care (01) ==
LOC: M ED 13:20 → EDBD 13:20 → M ED 07-13 06:44
DX: J20.5 Acute bronchitis due to respiratory syncytial virus (principal); R31.9 Hematuria, unspecified; E11.9 Type 2 diabetes mellitus without complications; I44.1 Atrioventricular block, second degree; I25.2 Old myocardial infarction; I12.9 Hypertensive chronic kidney disease with stage 1 through stage 4 chronic kidney disease, or unspecified chronic kidney disease; N18.30 Chronic kidney disease, stage 3 unspecified; F41.9 Anxiety disorder, unspecified; F32.A Depression, unspecified; Z88.1 Allergy status to other antibiotic agents; Z88.8 Allergy status to other drugs, medicaments and biological substances; Z79.51 Long term (current) use of inhaled steroids; Z79.899 Other long term (current) drug therapy; Z79.810 Long term (current) use of selective estrogen receptor modulators (SERMs)

== ENCOUNTER → 2025-07-30 | Outpatient (REF) | payer MEDICARE, MEDICAID ==
[~2025-07-30] MED LIST changes: +IPRA0.00 NEB
== END ==
LOC: M LAB REF 16:50
DX: R30.0 Dysuria (principal)

== ENCOUNTER → 2025-08-02 | Outpatient (REF) | payer MEDICARE, MEDICAID ==
[2025-08-02 18:25] LABS: APPEARANCE, URINE HAZY (CLEAR); BACTERIA, URINE AUTO NEGATIVE (NEGATIVE); BILIRUBIN, URINE AUTO NEGATIVE (NEGATIVE); BLOOD, URINE BLOOD 2+ (NEGATIVE); GLUCOSE, URINE (UA) AUTO NEGATIVE (NEGATIVE); KETONE, URINE AUTO NEGATIVE (NEGATIVE); LEUKOCYTE ESTERASE, URINE AUTO NEGATIVE (NEGATIVE); NITRITE, URINE AUTO NEGATIVE (NEGATIVE); PROTEIN, URINE AUTO 2+ mg/dL (NEGATIVE); RBC, URINE AUTO TNTC /HPF (0-3); SPECIFIC GRAVITY URINE AUTO 1.008 (1.002-1.035); SQUAMOUS EPITHELIAL CELL UR AU 2 /HPF (0-6); UROBILINOGEN, URINE AUTO 0.2 mg/dL (0.0-2.0); WBC, URINE AUTO 59 /HPF (0-3)
== END ==
LOC: M SMT 16:53
PROVIDERS: ATTEND Nurse Practitioner Family
DX: R31.0 Gross hematuria (principal)